=== PATIENT | male | born 1985 | race Caucasian/White ===

== ENCOUNTER 2019-05-13 08:59 | Outpatient (CLI) | payer OTHER ==
--- NOTE | 2019-05-13 10:11 | ULT ---
US Abdominal: 05/13/2019 12:00 AM CLINICAL HISTORY: Abnormal LFTs. STUDY: Complete abdominal ultrasound COMPARISON: None. FINDINGS: Liver: Size: Normal. Echogenicity: Hyperechoic consistent with hepatic steatosis. Contour: Smooth. Mass: None. Common bile duct: 5 mm Gallbladder: Cholelithiasis. Pancreas: Head and body appear normal; tail obscured by bowel gas. Inferior vena cava: Normal in caliber Aorta: Normal in caliber Spleen: No focal lesions. Spleen measuring 12.2 cm in length. Right kidney: No pelvicalyceal dilatation. Right kidney measuring 13.5 cm in length. Left kidney: No pelvicalyceal dilatation. Left kidney measuring 4.5 cm in length. There is a 2.2 cm c yst in the left kidney. IMPRESSION: 1. Cholelithiasis 2. Fatty liver 3. Left renal cyst
== END 2019-05-13 09:00 | disposition home or self-care (01) ==
LOC: SCSULT 08:59
PROVIDERS: ATTEND Internal Medicine
DX: R94.5 Abnormal results of liver function studies (principal); M79.10 Myalgia, unspecified site; K80.20 Calculus of gallbladder without cholecystitis without obstruction; N28.1 Cyst of kidney, acquired; K76.0 Fatty (change of) liver, not elsewhere classified
CPT/HCPCS: 76700